=== PATIENT | female | born 1995 | race Caucasian/White ===

== ENCOUNTER 2018-12-06 13:36 | Emergency (ER) | payer BC ==
[~2018-12-06] VITALS: Ht 170.2 cm; Wt 82.6 kg
[2018-12-06] MEDS ORDERED: BIPOLAR MEDICATION (14:04)
[2018-12-06 14:34] LABS: INFLUENZA A ANTIGEN None Detected (None Detect); INFLUENZA B ANTIGEN None Detected (None Detect)
[2018-12-06] MEDS ORDERED: ZPAK PO (14:42)
[2018-12-06 15:00] VITALS: BP 117/82
== END 2018-12-06 15:01 | disposition home or self-care (01) ==
LOC: M.ERS 13:36
PROVIDERS: Nurse Practitioner Family
DX: J02.0 Streptococcal pharyngitis (principal); Z88.0 Allergy status to penicillin